=== PATIENT | male | born 1995 | race Caucasian/White ===

== ENCOUNTER → 2020-04-30 | Outpatient (CLI) | payer OTHER ==
[~2020-04-30] MED LIST: HYDR-3713 PO
== END ==
LOC: M LABSMTC 09:26
PROVIDERS: ATTEND Anesthesiology
DX: Z01.812 Encounter for preprocedural laboratory examination (principal); Z20.828 Contact with and (suspected) exposure to other viral communicable diseases
CPT/HCPCS: C9803; U0002

== ENCOUNTER 2020-05-02 06:55 | Day surgery (SDC) | payer OTHER ==
[~2020-05-02] VITALS: Ht 177.8 cm; Wt 166.4 kg
[~2020-05-02 06:55] MED LIST changes: +LIDOCAINE 1% MDV 20ML VIAL SQ PRN; +MIDAZOLAM INJ 2MG/2ML VIAL (J2250 PER 1MG) As Ordered ONE; +ONDANSETRON 4MG/2ML VIAL As Ordered ONE; +PHENYLephrine HCL 500 MCG/5 ML (100MCG/ML) SYRINGE (J2370) As Ordered ONE; +ROCURONIUM BROMIDE 50 MG/5 ML VIAL As Ordered ONE; +dexameTHASONE 4 MG/ML 1ML VIAL (J1100 PER 1MG) As Ordered ONE; +ePHEDrine SULFATE 25 MG/5 ML(5MG/ML) SYRINGE As Ordered ONE; +fentaNYL 100 MCG/2 ML INJECTION (J3010) IV SCH; +fentaNYL 250 MCG/5 ML INJECTION (J3010) As Ordered ONE; +propofoL 200 MG/20 ML VIAL As Ordered ONE
[2020-05-02] MEDS ORDERED: ROPIvacaine 0.5% 30ML INJECTION (J2795 PER 1MG) ONE (06:56)
[2020-05-02] MEDS ORDERED: EPINEPHrine INJ 1 MG/ML 1ML AMP ONE (06:56)
[2020-05-02] MEDS ORDERED: LIDOCAINE 2% 100MG/5ML SDV (FOR ANES.) As Ordered ONE (06:56)
[2020-05-02] MEDS ORDERED: dexameTHASONE 10MG/1ML VIAL PRES.FREE (J1100 PER 1MG) ONE (06:56)
[2020-05-02] MEDS ORDERED: ceFAZolin SOD 2 GM in IV 1 EA IV ONE (07:00)
[2020-05-02] MEDS ORDERED: LR 1,000 ML IV ONE (07:00)
[2020-05-02] MEDS ORDERED: ceFAZolin 1GM VIAL (J0690 PER 500MG) As Ordered ONE ×2 (07:15→09:17)
[2020-05-02] MEDS ORDERED: fentaNYL 100 MCG/2 ML INJECTION (J3010) As Ordered ONE (08:08)
[2020-05-02] MEDS ORDERED: MIDAZOLAM INJ 2MG/2ML VIAL (J2250 PER 1MG) As Ordered ONE (08:08)
[2020-05-02] MEDS: MIDAZOLAM INJ 2MG/2ML VIAL (J2250 PER 1MG) IV SCH ×2 (08:19→08:20)
[2020-05-02] MEDS ORDERED: propofoL 200 MG/20 ML VIAL As Ordered ONE ×2 (08:57→09:50)
[2020-05-02] MEDS ORDERED: ACETAMINOPHEN 1000MG 100ML IV BTL (OFIRMEV) (J0131 PER 10MG) As Ordered ONE (09:07)
[2020-05-02] MEDS ORDERED: propofoL 500 MG/50 ML VIAL As Ordered ONE (09:14)
--- NOTE | 2020-05-02 10:39 | REP ---
INDICATION: RIGHT ANKLE FRACTURE. COMPARISON: None. TECHNIQUE: Three images. Procedural imaging. 41.8 seconds of fluoroscopy time is reported. FINDINGS: A sequence of 3 last image hold fluoroscopically obtained spot radiographs of the right ankle and tib fib document screw plate fixation in the distal fibula and transverse screws fixing the distal tibiofibular articulation. Ankle mortise is intact. IMPRESSION: Procedural imaging. <Electronically signed by Alex Box > 05/02/20 [id number]
[2020-05-02 13:35] VITALS: BP 180/92
--- NOTE | 2020-05-03 10:16 | RO ---
DATE OF OPERATION: 05/02/2020 PREOPERATIVE DIAGNOSIS: Right Chavez C ankle fracture with syndesmotic disruption. POSTOPERATIVE DIAGNOSIS: Right Chavez C ankle fracture with syndesmotic disruption. PROCEDURE: 1. Open reduction, internal fixation right distal fibular fracture. 2. Reduction and fixation of syndesmotic injury. SURGEON: Alexandru Garcia MD ANESTHESIA: Spinal popliteal block COMPLICATIONS: None. ESTIMATED BLOOD LOSS: 20 ml USER EXPERIENCE DEVELOPER: None. SPECIMENS: None. DESCRIPTION OF PROCEDURE: Antibiotics were given intravenously preoperatively and it was 3 gm of Kefzol and then a right popliteal block was performed and he was taken to the operating room for a spinal and was successfully performed. Right ankle area was carefully first prepped with a sterile scrub brush and then routine sterile prep and drape performed and then elevated. After appropriate time-out, the tourniquet was inflated. A bump under the hip was provided for more of a lateral approach to the ankle and skin incision was made. Bovie cautery was used to coagulate crossing vessels. The dissection was carried proximately to the fascia over the peroneal muscle. The superificial sensory branch of the peroneal nerve identified in the anterior aspect of the wound and protected at all times throughout the operation. The underlying fracture site was exposed and irrigated. An open anatomic reduction was performed with the alligator clamp and confirmed with fluoroscopic imaging. I then placed two interfragmentary compression screws by technique across the fracture site provided nice good stability. I then laid a 1/3 tubular plate as a neutralization bridge plate. Estimated its position with the fluoroscope making sure that the two most distal holes were going to be used for syndesmotic fixation. I then placed one 3.5 cortical screw just distal to the fracture site and I filled the remaining proximal holes of the plate with 3.5 cortical screws; and then once I was satisfied that the fracture was well reduced and stabilized, the syndesmotic was reduced by holding the ankle with some dorsiflexion, mild adduction and eversion; and it was clear under fluoroscopic image that we completed anatomic reduction of the syndesmosis, near space was normal in that position, as well and in that position had passed the guidepin from the 4.5 cannulated screw set across the most hole, measured at 56, drilled the near cortex and placed the 4.5 cannulated screw across syndesmosis and this held the syndesmotic anatomically reduced. I then placed the second syndesmotic screw just proximal to the screw by using the same technique using the 4.5 cannulated guidepin, making sure it was as parallel as possible, measured at 54, drilled the near cortex and placed the screw and final imaging with the fluoroscope was performed in the AP lateral mortice planes, confirming good anatomic reduction of the construct. We copiously irrigated. The tourniquet was released. I closed the deep subdermal tissues with interrupted 2-0 PDS sutures, skin was closed with dayan, followed by Adaptic dressing and bulky dressing. A short leg well-padded plaster cast was then applied and he was transferred to the recovery in stable condition. There were no intraoperative complications. LAURENCE
== END 2020-05-02 13:47 | disposition home or self-care (01) ==
LOC: M SDC 06:55
PROVIDERS: ATTEND Orthopaedic Surgery
DX: S82.841A Displaced bimalleolar fracture of right lower leg, initial encounter for closed fracture (principal); X58.XXXA Exposure to other specified factors, initial encounter; Y92.89 Other specified places as the place of occurrence of the external cause; Y93.9 Activity, unspecified; Y99.9 Unspecified external cause status
CPT/HCPCS: 27792; 27829; 64445; 76000; C1713; J0131; J0171; J0690; J1100; J2250; J2370; J2405; J2795; J3010

== ENCOUNTER → 2020-08-07 | Outpatient (CLI) | payer OTHER ==
[~2020-08-07] MED LIST changes: -LIDOCAINE 1% MDV 20ML VIAL SQ PRN; -MIDAZOLAM INJ 2MG/2ML VIAL (J2250 PER 1MG) As Ordered ONE; -ONDANSETRON 4MG/2ML VIAL As Ordered ONE; -PHENYLephrine HCL 500 MCG/5 ML (100MCG/ML) SYRINGE (J2370) As Ordered ONE; -ROCURONIUM BROMIDE 50 MG/5 ML VIAL As Ordered ONE; -dexameTHASONE 4 MG/ML 1ML VIAL (J1100 PER 1MG) As Ordered ONE; -ePHEDrine SULFATE 25 MG/5 ML(5MG/ML) SYRINGE As Ordered ONE; -fentaNYL 100 MCG/2 ML INJECTION (J3010) IV SCH; -fentaNYL 250 MCG/5 ML INJECTION (J3010) As Ordered ONE; -propofoL 200 MG/20 ML VIAL As Ordered ONE
--- NOTE | 2020-08-07 17:21 | ECGEPIP ---
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 No prior ECG available for comparison at the time of interpretation. Electronically Signed on 08-07-2020 17:20:52 EST by Carl Darnell
== END ==
LOC: M EKG 09:10
PROVIDERS: ATTEND Orthopaedic Surgery
DX: Z01.810 Encounter for preprocedural cardiovascular examination (principal)